=== PATIENT | female | born 1980 | race Asian ===

== ENCOUNTER 2017-08-29 07:39 | Emergency (ER) | payer OTHER ==
[~2017-08-29] VITALS: Ht 149.9 cm; Wt 85.5 kg
[2017-08-29] MEDS ORDERED: AMLO2.5T PO (07:42)
[2017-08-29] MEDS ORDERED: KETOROLAC TROMETHAMINE 60 MG/2 ML VIAL IM ONE (08:30)
[2017-08-29] MEDS ORDERED: AmLODIPine BESYLATE 5 MG TABLET PO ONE (09:30)
[2017-08-29 09:58] VITALS: BP 184/127
== END 2017-08-29 10:21 | disposition home or self-care (01) ==
LOC: EMS 07:40
DX: S93.601A Unspecified sprain of right foot, initial encounter (principal); I10 Essential (primary) hypertension; X58.XXXA Exposure to other specified factors, initial encounter; Y93.89 Activity, other specified; Y92.89 Other specified places as the place of occurrence of the external cause; Y99.8 Other external cause status
CPT/HCPCS: 73630; 96372; 99284; J1885